=== PATIENT | female | born 1935 | race Caucasian/White ===

== ENCOUNTER 2017-08-11 12:48 | Observation (INO) ==
--- NOTE | 2017-08-11 12:57 | Emergency Department Note ---
Disposition Clinical Impression: Syncope Qualifiers: Syncope type: unspecified Qualified Code(s): R55 - Syncope and collapse Scalp contusion Qualifiers: Encounter type: initial encounter Qualified Code(s): S00.03XA - Contusion of scalp, initial encounter Closed head injury Qualifiers: Encounter type: initial encounter Qualified Code(s): S09.90XA - Unspecified injury of head, initial encounter Disposition: Admitted As Inpatient Condition: Good Syncope HPI - General Chief Complaint: ED Syncope Stated Complaint: [facility] Time Seen by Provider: 08/11/17 12:53 Source: patient, EMS Mode of arrival: EMS Limitations: no limitations Nursing Notes Reviewed: Yes Vital Signs Reviewed: Yes - History of Present Illness HPI Narrative: Patient states she was standing in line [facility] and the next thing she knew that she is surrounded by people. States she remembers feeling dizzy and that she "passed out". She notes she has a headache and enough on her scalp. She denies neck or back pain. She denies a difficulty with her vision. She does report some nausea but no vomiting. She has any abnormal chest pain or palpitations and volunteers that she has atrial fibrillation. She denies associated shortness of breath that is new. She denies fevers but has felt a little chilled since the fall. She denies any abdominal pain, diarrhea or bloody or black stools. She denies any localizing numbness, tingling or weakness. She denies difficulty with speech or mentation. She denies any change of medicines. She states she does have anemia which is recurrent and chronic status post treatment for uterine cancer 4 years ago. She states her last radiation or chemotherapy was 3 years ago. She is scheduled to receive iron intravenously this upcoming Monday for her anemia. Patient is anticoagulated on Xarelto. 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 Duration: second(s) Prodromal Symptoms: lightheaded Witnessed: yes - by bystander Context: standing up Injuries Sustained Associated with Event: head Current Symptoms: lightheaded, headache History: other (Anemia) Treatments prior to arrival: none Associated trauma secondary to event: Yes - Related Data Home Medications Medication Instructions Recorded Confirmed Cholecalciferol (D-3) [Vitamin D] 5,000 unit PO 2XW 11/14/15 08/11/17 Glimepiride [Amaryl] 8 mg PO DAILY 11/14/15 08/11/17 Levothyroxine [Synthroid] 150 mcg PO DAILY 11/14/15 08/11/17 Olmesartan/Hydrochlorothiazide 1 each PO DAILY 11/14/15 08/11/17 [Benicar Hct 40-25 mg Tablet] Rivaroxaban [Xarelto] 15 mg PO 1700 11/14/15 08/11/17 Torsemide [Demadex] 10 mg PO DAILY 11/14/15 08/11/17 Isosorbide MONOnitrate (24 HR) 60 mg PO DAILY 01/13/17 08/11/17 [Imdur] Previous Rx's Medication Instructions Recorded Metoprolol XL (24 HR) Succ [Toprol 100 mg PO DAILY #30 tab.er.24h 01/20/16 Xl] Flecainide 50 mg PO Q12HR tablet 02/28/16 HYDROcodone/Acet 5/325 mg [[place] 1 tab PO Q6H PRN #10 tab 01/13/17 5-325 mg] Ondansetron ODT [Zofran ODT] 4 mg SL Q6HR #10 tab.rapdis 01/13/17 Allergies Allergy/AdvReac Type Severity Reaction Status Date / Time codeine Allergy Unconscious Verified 11/14/15 06:59 Tetanus Vaccines and Toxoid Allergy Anaphylaxis Verified 11/14/15 06:59 [Tetanus Vaccines & Toxoid] iodine AdvReac Hives Verified 01/18/16 18:41 ivp dye AdvReac Hives Uncoded 01/18/16 18:41 All systems ED: reviewed and negative except as stated. Past Medical History - Past Medical History Attestation: Yes The following information was validated with the patient. Source: patient, old records reviewed, nursing notes reviewed Medical history: Reports: atrial fibrillation, cancer, cirrhosis, CHF, coronary artery disease, diabetes, hypertension, renal disease, thyroid disease, other Surgical history: Reports: , cancer surgery (Pelvic), cholecystectomy, ANUP/BSO, other (Port in the right upper chest) Psychiatric history: Reports: anxiety - Social History Smoking Status: Never smoker Smokeless Tobacco Status: No Alcohol use: Reports: none Drug use: Reports: none Physical Exam - General Limitations: no limitations General appearance: alert, in no apparent distress - Head Head exam: normocephalic, other (Tender lump on the scalp in the midline occipital/parietal region..) - Eye Eye exam: Present: normal appearance, PERRL, EOMI. Absent: scleral icterus, conjunctival injection, nystagmus, miosis, mydriasis - ENT ENT exam: normal exam, normal oropharynx, mucous membranes moist, TM's normal bilaterally - Neck Neck exam: Present: normal inspection, full ROM, trachea midline. Absent: tenderness, meningismus, lymphadenopathy - Chest Chest inspection: Present: normal inspection, symmetric chest wall rise - Respiratory Respiratory exam: Present: normal lung sounds bilaterally. Absent: respiratory distress, wheezes, prolonged expiratory phase - Cardiovascular Cardiovascular exam: Present: regular rate, normal rhythm, normal heart sounds - Abdominal Exam Abdominal exam: Present: soft, Non-Tender, normal bowel sounds. Absent: tenderness, distention, guarding, rebound, rigidity - Extremities Exam Extremities exam: Present: normal inspection, full ROM, normal capillary refill. Absent: tenderness, pedal edema, calf tenderness - Expanded Lower Extremity Exam Neurovascular/Tendon exam: Present: normal capillary refill. Absent: motor deficit, sensory deficit, tendon deficit Gait: not tested/not observed - Back Exam Back exam: Present: normal inspection, full ROM. Absent: tenderness, vertebral tenderness - Neurological Exam Neurological exam: Present: alert, oriented X3, CN II-XII intact. Absent: motor sensory deficit - Psychiatric Psychiatric exam: Present: normal affect, normal mood - Skin Skin exam: Present: warm, dry, intact, normal color. Absent: rash, cyanosis, diaphoresis, pallor Course Course Narrative: All testing has been discussed with the patient. She states that she is persisting with nausea and weakness and does not feel safe going home to live alone at this time. She now relates that her nausea is actually been for 2 days and she has had decreased oral intake because of the nausea. She is concerned about possible dehydration and "the flu". I started some IV fluids and written for a nasal influenza swab to be run. Given her syncopal episode I have contacted to Dr. Conn to discuss her inpatient observation. Vital Signs Temperature 97 F L 08/11/17 12:50 Pulse Rate 54 08/11/17 12:50 Respiratory Rate 24 08/11/17 12:50 Blood Pressure 136/56 08/11/17 12:50 O2 Sat by Pulse Oximetry 98 08/11/17 12:50 Temperature 97 F L 08/11/17 12:50 Pulse Rate 53 08/11/17 14:29 Respiratory Rate 16 08/11/17 14:29 Blood Pressure 171/69 08/11/17 14:29 O2 Sat by Pulse Oximetry 98 08/11/17 14:29 Oxygen Delivery Oxygen Delivery Room Air Syncope - Differential Diagnosis Likely: syncope due to orthostatic hypotension, vasovagal syncope, intracerebral hemorrhage, dehydration/metabolic disorder, trauma secondary to event - Medical Records Medical records reviewed: Yes I reviewed the patient's medical records. - Lab Data Lab results reviewed: Yes I reviewed the patient's lab results. Lab results narrative: Influenza A and influenza B are negative. Result diagrams: 08/11/17 13:27 08/11/17 13:27 Lab Results 08/11/17 08/11/17 08/11/17 Range/Units 13:27 13:27 13:27 WBC 5.0 (4.3-11.1) K/mcL RBC 3.48 L (3.82-4.97) M/mcL Hgb 9.7 L (11.5-15.4) g/dL Hct 29.2 L (35.3-44.9) % MCV 83.9 (83.0-100.0) fL MCH 27.9 L (28.0-33.3) pg MCHC 33.2 (31.6-35.5) g/dL RDW 14.5 (11.5-14.5) % Plt Count 162 (140-400) K/mcL MPV 11.1 (9.4-12.4) fL Immature Gran % 1.4 (0-4) % Seg Neutrophils % 66.0 % Lymphocytes % 19.3 % Monocytes % 10.5 % Eosinophils % 1.8 % Basophils % 1.0 % Neutrophils # 3.3 (1.6-8.9) K/mcL Lymphocytes # 1.0 (0.6-4.6) K/mcL Monocytes # 0.5 (0.0-1.3) K/mcL Eosinophils # 0.1 (0.0-0.6) K/mcL Basophils # 0.1 (0.0-0.2) K/mcL PT 18.6 H (9.4-12.1) Seconds INR 1.7 APTT 48.0 H (26.0-36.0) Seconds Sodium 136 (136-145) mEq/L Potassium 3.5 (3.5-5.1) mEq/L Chloride 99 (98-107) mEq/L Carbon Dioxide 25 (23-29) mEq/L BUN 19 (8-23) mg/dL Creatinine 1.39 H (0.60-1.20) mg/dL Est GFR ( Amer) 44 L (> 60) Est GFR (Non-Af Amer) 36 L (> 60) BUN/Creatinine Ratio 14 (6-26) Glucose 161 H (70-105) mg/dL Calculated Osmolality 288 (280-300) Calcium 9.1 (8.6-10.3) mg/dL Troponin I (< 0.04) ng/mL 08/11/17 Range/Units 13:27 WBC (4.3-11.1) K/mcL RBC (3.82-4.97) M/mcL Hgb (11.5-15.4) g/dL Hct (35.3-44.9) % MCV (83.0-100.0) fL MCH (28.0-33.3) pg MCHC (31.6-35.5) g/dL RDW (11.5-14.5) % Plt Count (140-400) K/mcL MPV (9.4-12.4) fL Immature Gran % (0-4) % Seg Neutrophils % % Lymphocytes % % Monocytes % % Eosinophils % % Basophils % % Neutrophils # (1.6-8.9) K/mcL Lymphocytes # (0.6-4.6) K/mcL Monocytes # (0.0-1.3) K/mcL Eosinophils # (0.0-0.6) K/mcL Basophils # (0.0-0.2) K/mcL PT (9.4-12.1) Seconds INR APTT (26.0-36.0) Seconds Sodium (136-145) mEq/L Potassium (3.5-5.1) mEq/L Chloride (98-107) mEq/L Carbon Dioxide (23-29) mEq/L BUN (8-23) mg/dL Creatinine (0.60-1.20) mg/dL Est GFR ( Amer) (> 60) Est GFR (Non-Af Amer) (> 60) BUN/Creatinine Ratio (6-26) Glucose (70-105) mg/dL Calculated Osmolality (280-300) Calcium (8.6-10.3) mg/dL Troponin I < 0.03 (< 0.04) ng/mL - Radiology Data Radiology results reviewed: Yes I reviewed the patient's radiology results. CT head is performed. This is reviewed on bone and soft tissue windows. There is no evidence for acute intracranial bleed, shift, mass or edema. Mastoids and sinuses appear normal. There is no fracture evident. This is on my interpretation. CT is performed of the cervical spine. This is reviewed on all reconstructions. There is no evidence for acute fracture or misalignment. There is no anterior soft tissue swelling. Disc spaces are well maintained. There is no evidence for spondylolysis/listhesis. Patient has fusion of C5-C6 present. No acute abnormality is seen. This is on my interpretation. Impressions Cervical Spine CT 08/11/17 12:57 IMPRESSION: No acute abnormality of the cervical spine. D/ / Shawn Harper MD / Shawn Harper MD Interpreting Provider: Shawn Harper MD Head CT 08/11/17 12:57 IMPRESSION: 1. Small posterior cephalohematoma but no acute intracranial abnormality. 2. Diffuse cerebral atrophy with chronic small vessel ischemic disease. D/ / Manuel Chambers MD / Manuel Chambers MD Interpreting Provider: Manuel Chambers MD - EKG Data EKG attestation: Yes I reviewed and interpreted this EKG. EKG shows normal: sinus rhythm, axis, intervals, QRS complexes, ST-T waves Rate: bradycardia (55) Heart block present: 1st Degree Interpretation: no acute changes, normal EKG
[2017-08-11 13:33] LABS: Basophils # 0.1 K/mcL (0.0-0.2); Eosinophils # 0.1 K/mcL (0.0-0.6); Eosinophils % 1.8 %; Hematocrit 29.2 % (35.3-44.9); Hemoglobin 9.7 g/dL (11.5-15.4); Immature Granulocytes % 1.4 % (0-4); Lymphocytes % 19.3 %; Mean Corpuscular HGB Conc 33.2 g/dL (31.6-35.5); Mean Corpuscular Hemoglobin 27.9 pg (28.0-33.3); Mean Corpuscular Volume 83.9 fL (83.0-100.0); Mean Platelet Volume 11.1 fL (9.4-12.4); Monocytes # 0.5 K/mcL (0.0-1.3); Monocytes % 10.5 %; Neutrophils # 3.3 K/mcL (1.6-8.9); Platelet Count 162 K/mcL (140-400); Red Blood Count 3.48 M/mcL (3.82-4.97); Red Cell Distribution Width 14.5 % (11.5-14.5)
[2017-08-11 13:41] LABS: INR 1.7; Prothrombin Time 18.6 Seconds (9.4-12.1)
[2017-08-11 13:49] LABS: Calcium 9.1 mg/dL (8.6-10.3); Potassium 3.5 mEq/L (3.5-5.1)
[2017-08-11] MEDS ORDERED: Ondansetron ODT 4 MG TAB.RAPDIS SL ONE (14:00)
[2017-08-11] MEDS ORDERED: *HR* HYDROcodone/Acet 5/325 mg TABLET PO ONE (14:01)
[2017-08-11] MEDS ORDERED: 0.9 % Sodium Chloride 1,000 ML IVC SCH (14:15)
[2017-08-11] MEDS ORDERED: D5% in Water 1,000 ML IVC PRN (15:12)
[2017-08-11] MEDS ORDERED: Naloxone 0.4 MG/ML INJ IVP PRN (15:12)
[2017-08-11] MEDS ORDERED: *HR* Dextrose 50 % in Water (Syg) 50 ML SYRINGE IVP PRN (15:12)
[2017-08-11] MEDS ORDERED: Dextrose Gel 15 GM/37.5 ML TUBE PO PRN ×2 (15:12)
[2017-08-11] MEDS: Diltiazem CD (24hr) 300 MG CAPSULE PO SCH (17:26)
[2017-08-11] MEDS: Insulin LISPRO 300 UNITS/3 ML VIAL SQ SCH (17:28)
[2017-08-11] MEDS: 0.9 % Sodium Chloride 1,000 ML IVC SCH (17:28)
[2017-08-11] MEDS: *HR* Rivaroxaban 15 MG TABLET PO SCH (20:40)
[2017-08-11] MEDS: Ondansetron ODT 4 MG TAB.RAPDIS SL SCH (20:41)
[2017-08-11] MEDS: *HR* HYDROcodone/Acet 5/325 mg TABLET PO PRN (20:44)
[2017-08-12] MEDS: 0.9 % Sodium Chloride 1,000 ML IVC SCH (00:42)
[2017-08-12] MEDS: Ondansetron ODT 4 MG TAB.RAPDIS SL SCH ×4 (00:45→17:38)
[2017-08-12] MEDS: *HR* HYDROcodone/Acet 5/325 mg TABLET PO PRN (05:26)
[2017-08-12] MEDS: Insulin LISPRO 300 UNITS/3 ML VIAL SQ SCH ×3 (07:29→17:35)
[2017-08-12] MEDS: Metoprolol XL (24 HR) Succ 50 MG TAB.ER.24H PO SCH (08:27)
[2017-08-12] MEDS ORDERED: Torsemide 20 MG TABLET PO SCH (09:00)
[2017-08-12] MEDS ORDERED: hydroCHLOROthiazide 25 MG TABLET PO SCH (09:00)
[2017-08-12] MEDS ORDERED: OLMESARTAN PO SCH (09:00)
[2017-08-12] MEDS ORDERED: HYDROCHLOROTHIAZIDE PO SCH (09:00)
[2017-08-12] MEDS ORDERED: Valsartan 160 MG TABLET PO SCH (09:00)
[2017-08-12] MEDS ORDERED: [UNRECOGNIZED DRUG - OTHER] PO SCH (09:00)
--- NOTE | 2017-08-12 09:20 | Internal Med History&Physical ---
Date of Encounter: 08/12/17 Time of Encounter: 08:45 Assessment and Plan (1) Syncope Current visit: Yes Status: Acute Suspect cardiogenic etiology. She has been placed on telemetry. Orthostatic vital signs will be checked in a.m. Qualifiers: Syncope type: unspecified Qualified Code(s): R55 - Syncope and collapse (2) Atrial fibrillation Current visit: No Status: Chronic Continues Xarelto, diltiazem, and Toprol. Qualifiers: Atrial fibrillation type: paroxysmal Qualified Code(s): I48.91 - Unspecified atrial fibrillation (3) Anemia Current visit: No Status: Chronic Suspect due at least in part to chronic kidney disease. Will order anemia testing. Qualifiers: Anemia type: unspecified type Qualified Code(s): D64.9 - Anemia, unspecified (4) CKD (chronic kidney disease) stage 3, GFR 30-59 ml/min Current visit: No Status: Chronic Will hold Benicar HCT and Demadex and monitor renal indices. (5) Hypothyroid Current visit: No Status: Chronic We will check TSH. Qualifiers: Hypothyroidism type: unspecified Qualified Code(s): E03.9 - Hypothyroidism , unspecified (6) Hypertension Current visit: No Status: Chronic Continue metoprolol and Cardizem. Qualifiers: Hypertension type: essential hypertension Qualified Code(s): I10 - Essential (primary) hypertension (7) Gout Current visit: Yes Status: Acute We will check uric acid level. Qualifiers: Gout site: unspecified site Gout etiology: unspecified cause Chronicity: chronic Presence of tophus: without tophus Qualified Code(s): M1A.9XX0 - Chronic gout, unspecified, without tophus (tophi) Internal Medicine - H&P: HPI Chief complaint: Syncope Admitted From: Emergency Dept Plans for Post Hospital Care: Home History of present illness: Ms. Cuellar is a 81 year old female who came to emergency room after having 3 syncopal episodes. She reports she was standing in line at [employer] and felt a sensation of her heart beating rapidly. Her next recollection is sitting on the floor in an upright position with witnesses reporting she had fallen with loss of consciousness. She sustained a hematoma to her occipital area without laceration. She had another syncopal episode in the store a few minutes later. The squad was called and she reports a third syncopal episode occurred before she arrived at the emergency room. She was evaluated in ER and admitted to [facility] for ongoing care needs. She denies any previous syncopal or near syncopal episodes. She reports occasional orthostatic symptoms arising from a chair in the past month. Her cardiovascular history is significant for hypertension. She claims she had a myocardial infarction in 1991 but has not had a heart catheterization done. She claims had a nuclear medicine stress test October 2015 without intervention recommended. She had an echocardiogram done 07/21/2015 which showed LVEF of 55 % with mild diastolic dysfunction seen. There was mild aortic regurgitation but no other significant valvular normalities were noted. She is on Xarelto for paroxysmal atrial fibrillation. She states cardiologists at [facility] recommended she have a pacemaker but she went to [place] and saw another stable cleaner who felt it was preferable to attempt antiarrhythmic drug flecainide as the next step. She reports occasional bradycardia and tachycardia when she checks her pulse at home. Past Med Surg Social Fam HX - Past Medical History Medical history: atrial fibrillation, cancer, cirrhosis, CHF, coronary artery disease, diabetes, hypertension, renal disease, thyroid disease, other Psychiatric history: anxiety - Past Surgical History Surgical History: , cancer surgery, cholecystectomy, ANUP/BSO, other - Social History Smoking Status: Never smoker Smokeless Tobacco Status: No Alcohol use: none Drug use: none - Family History Mother Adopted: No Hx Family Cardiac Disorders: Yes Hx Family Respiratory Disorders: Yes Internal Medicine - H&P: Meds Cholecalciferol (D-3) [Vitamin D] 5,000 unit PO 2XW 11/14/15 [History] Glimepiride [Amaryl] 8 mg PO DAILY 11/14/15 [History] Levothyroxine [Synthroid] 150 mcg PO DAILY 11/14/15 [History] Olmesartan/Hydrochlorothiazide [Benicar Hct 40-25 mg Tablet] 1 each PO DAILY 01/22 [History] Rivaroxaban [Xarelto] 15 mg PO 1700 11/14/15 [History] Torsemide [Demadex] 10 mg PO DAILY 11/14/15 [History] Metoprolol XL (24 HR) Succ [Toprol Xl] 100 mg PO DAILY #30 tab.er.24h 01/20/16 [ Rx] Flecainide 50 mg PO Q12HR tablet 02/28/16 [Rx] HYDROcodone/Acet 5/325 mg [[place] 5-325 mg] 1 tab PO Q6H PRN #10 tab 01/13/17 [Rx ] Isosorbide MONOnitrate (24 HR) [Imdur] 60 mg PO DAILY 01/13/17 [History] Ondansetron ODT [Zofran ODT] 4 mg SL Q6HR #10 tab.rapdis 01/13/17 [Rx] 3 Allergy/AdvReac Type Severity Reaction Status Date / Time codeine Allergy Unconscious Verified 11/14/15 06:59 Tetanus Vaccines and Toxoid Allergy Anaphylaxis Verified 11/14/15 06:59 [Tetanus Vaccines & Toxoid] iodine AdvReac Hives Verified 01/18/16 18:41 ivp dye AdvReac Hives Uncoded 01/18/16 18:41 All Systems PM: A 10-system review of systems was performed and is negative for pertinent findings except as documented above in the HPI. Review of systems: Gen.: Her weight has increased from 75.75 kg on 02/28/2016 to 78.018 kg on admission now. Cardiovascular: As per history of present illness Respiratory: She is a lifelong nonsmoker but has been diagnosed with COPD. She does not wear home oxygen. She had a sleep study December 2015 and was told she did not need BiPAP GI: She has had cholecystectomy. 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 She denies other kidney or bladder disorders Neurologic: She denies large distribution strokes or seizures Endocrine: She was diagnosed with DM 2 approximately 2005. 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 She is presumed cancer free. She has chronic anemia and has had workup including a bone marrow study which did not show etiology. She was told recently by her cancer physicians in [place] she needed iron infusion. Psychiatric: She denies anxiety depression or other mental health issues Musculoskeletal: She has DJD and gout - Constitutional Vitals: Temp Pulse Resp BP Pulse Ox 99.4 F 54 18 138/58 98 08/12/17 06:21 02/03/18 06:21 02/03/18 06:21 08/12/17 06:21 08/12/17 06:21 Exam: Gen.: She is a well-developed well-nourished female resting comfortably in bed who appears in no acute distress HEENT: Head is atraumatic and normocephalic. Eyes: EOMI. There is no scleral icterus. Mouth: Mucosa is moist. Neck: Supple and nontender. There is no thyromegaly or adenopathy noted. Heart: Regular without murmurs gallops or ectopics Lungs: No wheezes or crackles are heard. Abdomen: Soft and nontender. No masses or guarding are noted. Extremities: There is no cyanosis edema or clubbing noted. Dorsalis pedis and posttibial pulses are 1-2 over 2 bilaterally. She has mild DJD changes of her hands. Neurologic: Mental status: She is talkative and a good historian. Cranial nerves: Smile is symmetric. Forehead wrinkles bilaterally. Tongue protrudes midline. EOMI. Motor: There is no pronator drift. Cerebellar: Finger to nose is intact bilaterally. Skin: Warm and dry Internal Med - H&P Results - Labs CBC & Chem 7: 08/11/17 13:27 08/11/17 13:27
[2017-08-12] MEDS: Diltiazem CD (24hr) 300 MG CAPSULE PO SCH ×2 (09:23→17:37)
[2017-08-12] MEDS: *HR* Glimepiride 2 MG TABLET PO SCH (09:24)
[2017-08-12] MEDS: Isosorbide MONOnitrate (24 HR) 60 MG TAB.ER.24H PO SCH (09:24)
[2017-08-12] MEDS: 0.45 % Sodium Chloride w/KCl 20 MEQ/1,000 ML MLS IVC SCH ×2 (11:25→20:35)
[2017-08-12] MEDS: *HR* Rivaroxaban 15 MG TABLET PO SCH (17:37)
[2017-08-12 20:10] LABS: % Iron Saturation 8 % (15-50); Ferritin 14 ng/ml (10-120); Iron 36 mcg/dL (50-170); Transferrin 306 mg/dL (203-362)
[2017-08-12] MEDS ORDERED: Ondansetron ODT 4 MG TAB.RAPDIS SL PRN (21:17)
[2017-08-12] MEDS ORDERED: Metoprolol XL (24 HR) Succ 50 MG TAB.ER.24H PO ONE (21:17)
[2017-08-12 23:13] LABS: Folate 20.1 ng/mL (3.0-16.0)
[2017-08-13] MEDS: *HR* HYDROcodone/Acet 5/325 mg TABLET PO PRN ×3 (00:16→23:45)
[2017-08-13] MEDS: *HR* LORazepam 0.5 MG TABLET PO PRN ×2 (03:28→22:52)
[2017-08-13] MEDS: 0.45 % Sodium Chloride w/KCl 20 MEQ/1,000 ML MLS IVC SCH ×3 (05:58→23:46)
[2017-08-13 06:27] LABS: Basophils % 0.9 %; Eosinophils # 0.2 K/mcL (0.0-0.6); Eosinophils % 5.6 %; Hematocrit 25.2 % (35.3-44.9); Hemoglobin 8.1 g/dL (11.5-15.4); Immature Granulocytes % 0.9 % (0-4); Lymphocytes # 0.8 K/mcL (0.6-4.6); Lymphocytes % 22.5 %; Mean Corpuscular HGB Conc 32.1 g/dL (31.6-35.5); Mean Corpuscular Hemoglobin 27.7 pg (28.0-33.3); Mean Corpuscular Volume 86.3 fL (83.0-100.0); Mean Platelet Volume 10.8 fL (9.4-12.4); Monocytes # 0.3 K/mcL (0.0-1.3); Monocytes % 10.1 %; Platelet Count 127 K/mcL (140-400); Red Blood Count 2.92 M/mcL (3.82-4.97); Red Cell Distribution Width 14.4 % (11.5-14.5)
[2017-08-13 06:53] LABS: Calcium 8.3 mg/dL (8.6-10.3); Uric Acid 5.9 mg/dL (2.3-7.6)
[2017-08-13] MEDS: Insulin LISPRO 300 UNITS/3 ML VIAL SQ SCH ×2 (08:21→16:51)
[2017-08-13] MEDS: Metoprolol XL (24 HR) Succ 50 MG TAB.ER.24H PO SCH (08:21)
[2017-08-13] MEDS: *HR* Glimepiride 2 MG TABLET PO SCH (08:22)
[2017-08-13] MEDS: Isosorbide MONOnitrate (24 HR) 60 MG TAB.ER.24H PO SCH (08:23)
--- NOTE | 2017-08-13 09:14 | Internal Med Progress Note ---
Date of Encounter: 08/13/17 Time of Encounter: 09:05 - Assessment and plan (1) Syncope Current Visit: Yes Status: Acute Assessment and plan: August 13. She has had no further episodes. Continue present therapy. Qualifiers: Syncope type: unspecified Qualified Code(s): R55 - Syncope and collapse (2) Atrial fibrillation Current Visit: No Status: Chronic Assessment and plan: August 13. Continue Xarelto, diltiazem, and Toprol Qualifiers: Atrial fibrillation type: paroxysmal Qualified Code(s): I48.91 - Unspecified atrial fibrillation (3) Anemia Current Visit: No Status: Chronic Assessment and plan: . Hemoglobin has decreased to 8.1 with IV fluids. Anemia testing showed iron 36, transferrin saturation 8%, transferrin 306, ferritin 14, B12 229 , and folate 20.1. Will give her B12 injection IM and iron dextran infusion. Qualifiers: Anemia type: unspecified type Qualified Code(s): D64.9 - Anemia, unspecified (4) CKD (chronic kidney disease) stage 3, GFR 30-59 ml/min Current Visit: No Status: Chronic Assessment and plan: August 13. Creatinine improved to 1.12 with estimated GFR 47. Continue to withhold Benicar HCT and Demadex. Recheck labs in a.m. (5) Hypothyroid Current Visit: No Status: Chronic Assessment and plan: August 13. TSH was normal at 3.378. Continue present dose Synthroid. Qualifiers: Hypothyroidism type: unspecified Qualified Code(s): E03.9 - Hypothyroidism , unspecified (6) Hypertension Current Visit: No Status: Chronic Assessment and plan: August 13. Continue metoprolol and Cardizem. Qualifiers: Hypertension type: essential hypertension Qualified Code(s): I10 - Essential (primary) hypertension (7) Gout Current Visit: Yes Status: Acute Assessment and plan: August 13. Uric acid level is normal at 5.9. Qualifiers: Gout site: unspecified site Gout etiology: unspecified cause Chronicity: chronic Presence of tophus: without tophus Qualified Code(s): M1A.9XX0 - Chronic gout, unspecified, without tophus (tophi) - Subjective Interval history: August 13. She has no new complaints and feels better. - Constitutional Vitals: Temp Pulse Resp BP Pulse Ox 97.9 F 57 14 145/62 94 08/13/17 06:27 08/13/17 06:27 08/13/17 06:27 08/13/17 06:27 08/13/17 06:27 Exam: She is resting comfortably in bed and appears in no acute distress. Her affect is bright and cheerful. I reviewed her medications and lab results. Internal Medicine: Result - Labs CBC & Chem 7: 08/13/17 06:15 08/13/17 06:15 Labs: Short CBC 08/13/17 Range/Units 06:15 WBC 3.4 L (4.3-11.1) K/mcL Hgb 8.1 L D (11.5-15.4) g/dL Hct 25.2 L (35.3-44.9) % Plt Count 127 L (140-400) K/mcL Neutrophils # 2.0 (1.6-8.9) K/mcL BMP 08/13/17 06:15 Sodium 137 Potassium 4.0 Chloride 106 Carbon Dioxide 27 BUN 14 Creatinine 1.12 Glucose 106 H Calcium 8.3 L - ABG Interpretation ABG results: PT/INR, D-dimer PT 18.6 Seconds (9.4-12.1) H 08/11/17 13:27 Consult Discharge Plan - Plan Referrals: Yuri Grewal DO [Primary Care Provider] - 1 week
[2017-08-13] MEDS ORDERED: Cyanocobalamin (B-12) 1,000 MCG/ML VIAL IM ONE (09:19)
--- NOTE | 2017-08-13 10:14 | Electrocardiograph Report ---
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
[2017-08-13] MEDS ORDERED: IRON DEXTRAN COMPLEX IVPB ONE (10:30)
[2017-08-13] MEDS ORDERED: SODIUM CHLORIDE 0.9% IVPB ONE (10:30)
[2017-08-13] MEDS: *HR* Rivaroxaban 15 MG TABLET PO SCH (17:07)
[2017-08-13] MEDS: Diltiazem CD (24hr) 300 MG CAPSULE PO SCH (17:08)
[2017-08-14 06:24] LABS: Basophils % 0.6 %; Eosinophils # 0.2 K/mcL (0.0-0.6); Eosinophils % 6.6 %; Hematocrit 26.1 % (35.3-44.9); Hemoglobin 8.5 g/dL (11.5-15.4); Immature Granulocytes % 0.9 % (0-4); Lymphocytes # 0.7 K/mcL (0.6-4.6); Lymphocytes % 19.4 %; Mean Corpuscular HGB Conc 32.6 g/dL (31.6-35.5); Mean Corpuscular Hemoglobin 28.1 pg (28.0-33.3); Mean Corpuscular Volume 86.1 fL (83.0-100.0); Mean Platelet Volume 11.3 fL (9.4-12.4); Monocytes # 0.3 K/mcL (0.0-1.3); Monocytes % 9.6 %; Neutrophils # 2.1 K/mcL (1.6-8.9); Platelet Count 124 K/mcL (140-400); Red Blood Count 3.03 M/mcL (3.82-4.97); Red Cell Distribution Width 14.5 % (11.5-14.5); Segmented Neutrophils % 62.9 %
[2017-08-14 06:38] LABS: BUN/Creatinine Ratio 12 (6-26); Blood Urea Nitrogen 12 mg/dL (8-23); Calcium 8.8 mg/dL (8.6-10.3); Carbon Dioxide 25 mEq/L (23-29); Chloride 107 mEq/L (98-107); Glucose 106 mg/dL (70-105); Osmolality,Calculated 288 (280-300); Potassium 3.8 mEq/L (3.5-5.1); Sodium 139 mEq/L (136-145); eGFR For Non-African Americans 51 (> 60)
[2017-08-14 07:23] VITALS: BP 166/63
[2017-08-14] MEDS: Insulin LISPRO 300 UNITS/3 ML VIAL SQ SCH (09:10)
[2017-08-14] MEDS: Metoprolol XL (24 HR) Succ 50 MG TAB.ER.24H PO SCH (09:11)
[2017-08-14] MEDS: *HR* Glimepiride 2 MG TABLET PO SCH (09:11)
[2017-08-14] MEDS: Isosorbide MONOnitrate (24 HR) 60 MG TAB.ER.24H PO SCH (09:11)
--- NOTE | 2017-08-14 10:15 | Discharge Summary ---
Date of Encounter: 08/14/17 Time of Encounter: 10:05 - Discharge Diagnosis (1) Syncope Priority: Primary Status: Acute Qualifiers: Syncope type: unspecified Qualified Code(s): R55 - Syncope and collapse (2) Atrial fibrillation Priority: Secondary Status: Chronic Qualifiers: Atrial fibrillation type: paroxysmal Qualified Code(s): I48.91 - Unspecified atrial fibrillation (3) Anemia Priority: Secondary Status: Chronic Qualifiers: Anemia type: unspecified type Qualified Code(s): D64.9 - Anemia, unspecified (4) CKD (chronic kidney disease) stage 3, GFR 30-59 ml/min Priority: Secondary Status: Chronic (5) Hypothyroid Priority: Secondary Status: Chronic Qualifiers: Hypothyroidism type: unspecified Qualified Code(s): E03.9 - Hypothyroidism , unspecified (6) Hypertension Priority: Secondary Status: Chronic Qualifiers: Hypertension type: essential hypertension Qualified Code(s): I10 - Essential (primary) hypertension (7) Gout Priority: Secondary Status: Chronic Qualifiers: Gout site: unspecified site Gout etiology: unspecified cause Chronicity: chronic Presence of tophus: without tophus Qualified Code(s): M1A.9XX0 - Chronic gout, unspecified, without tophus (tophi) - Discharge Medications Prescriptions: Cyanocobalamin (B-12) [Vitamin B12] 1,000 mcg PO DAILY #30 tablet Olmesartan Medoxomil [Benicar] 40 mg PO DAILY #30 tablet Home Medications: Cholecalciferol (D-3) [Vitamin D] 5,000 unit PO 2XW 11/14/15 [History] Glimepiride [Amaryl] 8 mg PO DAILY 11/14/15 [History] Levothyroxine [Synthroid] 150 mcg PO DAILY 11/14/15 [History] Rivaroxaban [Xarelto] 15 mg PO 1700 11/14/15 [History] Flecainide 50 mg PO Q12HR tablet 02/28/16 [Rx] HYDROcodone/Acet 5/325 mg [Thurmond 5-325 mg] 1 tab PO Q6H PRN #10 tab 01/13/17 [Rx ] Isosorbide MONOnitrate (24 HR) [Imdur] 60 mg PO DAILY 01/13/17 [History] Ondansetron ODT [Zofran ODT] 4 mg SL Q6HR #10 tab.rapdis 01/13/17 [Rx] Cyanocobalamin (B-12) [Vitamin B12] 1,000 mcg PO DAILY #30 tablet 08/14/17 [Rx] Metoprolol XL (24 HR) Succ [Toprol Xl] 50 mg PO DAILY #30 tab.er.24h 08/14/17 [ Rx] Olmesartan Medoxomil [Benicar] 40 mg PO DAILY #30 tablet 08/14/17 [Rx] Allergies/Adverse Reactions: 3 Allergy/AdvReac Type Severity Reaction Status Date / Time codeine Allergy Unconscious Verified 11/14/15 06:59 Tetanus Vaccines and Toxoid Allergy Anaphylaxis Verified 11/14/15 06:59 [Tetanus Vaccines & Toxoid] iodine AdvReac Hives Verified 01/18/16 18:41 ivp dye AdvReac Hives Uncoded 01/18/16 18:41 Date of admission: 08/11/17 14:41 Primary care physician: Yuri Grewal - Patient Status Disposition: Home, Self-Care Condition: Good Functional capacity at discharge: independent ambulation Overall status at discharge: patient is progressing back to baseline - Discharge Instructions Follow Up With: Yuri Grewal DO [Primary Care Provider] - 1 week - Diet and Activity Activity: resume usual activities as tolerated Diet: advance to your usual diet Hospital course: Ms. Cuellar is a 81 year old female who came to emergency room after having 3 syncopal episodes. She reports she was standing in line at [employer] and felt a sensation of her heart beating rapidly. Her next recollection is sitting on the floor in an upright position with witnesses reporting she had fallen with loss of consciousness. She sustained a hematoma to her occipital area without laceration. She had another syncopal episode in the store a few minutes later. The squad was called and she reports a third syncopal episode occurred before she arrived at the emergency room. She was evaluated in ER and admitted to [facility] for ongoing care needs. Initial orders were written by the emergency room physician. I saw her on August 12 and performed a history and physical. She had no further syncopal or near syncopal episodes. Her vital signs remained stable with frequent bradycardia observed. She reported she was taking Toprol-XL 50 mg twice a day at home. She will reduce the dose to 50 mg daily. Benicar/HCT and Demadex were discontinued on admission because of azotemia and orthostatic symptoms. Her azotemia improved with creatinine decreasing to 1.04 by day of discharge with estimated GFR 51. She will be started on Benicar 40 mg daily and remain off Demadex and Benicar/HCT at discharge. She will reduce Toprol to 50 mg daily. She will continue Cardizem CD 300 mg daily as at home. Anemia testing showed iron 36, transferrin saturation 8%, transferrin 306, ferritin 14, B12 229, and folate 20.1. She was given iron dextran infusion. She was given B12 injection IM and will be started on oral B12 supplement at discharge. Uric acid level returned satisfactory at 5.9. TSH was normal at 3.378. On August 14 she felt stable for discharge home. She will follow with her PCP Dr. Celestine Grewal within 1 week. - Time Spent with Patient Total time spent providing and/or coordinating discharge services: - Constitutional Vitals: Temp Pulse Resp BP Pulse Ox 98.1 F 66 16 166/63 94 08/14/17 07:19 08/14/17 07:19 08/14/17 07:19 08/14/17 07:19 08/14/17 07:19
== END 2017-08-14 12:00 | disposition home or self-care (01) ==
LOC: EMEROOPIK 12:48 → INPPIK 12:48
PROVIDERS: ADMIT Internal Medicine; ATTEND Internal Medicine